=== PATIENT | male | born 1975 | race Caucasian/White ===

== ENCOUNTER 2023-07-04 17:17 | Emergency (ER) | payer BC ==
[2023-07-04 17:33] VITALS: O2SAT 99
--- NOTE | 2023-07-04 17:40 | ED Physician Documentation ---
PD HPI LOWER EXT INJURY - Stated complaint Stated Complaint: RT KNEE PX - Chief complaint Chief Complaint: Ext Problem - History obtained from History obtained from: Patient - Additional information Additional information: Patient is a 47-year-old male with no significant prior medical history presenting for evaluation of right knee pain. Patient works at the [employer] and reports slipping on some grease this morning around 1030 or 11. He felt his knee twist but was able to catch himself from falling. No head injury. He states since that time he has been limping a little bit on his right leg. He did take some ibuprofen which has helped. He denies any significant pain with range of motion but reports that sometimes when he is walking or takes a step up stairs he notices a sharp pain. Review of Systems Musculoskeletal: reports: Joint pain Neurologic: denies: Head injury PD PAST MEDICAL HISTORY - Past Medical History Past Medical History: No - Past Surgical History Past Surgical History: Yes Ortho: Shoulder arthroplasty - Present Medications Home Medications: Ambulatory Orders Medication Instructions Recorded Confirmed No Known Home Medications 07/04/23 07/04/23 - Allergies Allergies/Adverse Reactions: Allergies Allergy/AdvReac Type Severity Reaction Status Date / Time No Known Drug Allergies Allergy Verified 07/04/23 17:25 - Social History Does the pt smoke?: No Smoking Status: Never smoker PD ED PE NORMAL - General General: Alert and oriented X 3, No acute distress, Well developed/nourished - HEENT HEENT: Atraumatic - Neck Neck: Supple, no meningeal sign - Cardiac Cardiac: Strong equal pulses - Respiratory Respiratory: No respiratory distress - Extremities Extremities: No deformity, No tenderness to palpate, Normal ROM s pain, Other (Reports sharp pain at times to the superior lateral aspect of the right knee, no swelling or deformity) - Neuro Neuro: Alert and oriented X 3, No motor deficit, No sensory deficit, Normal speech Results - Vitals Vitals: Vital Signs - 24 hr 07/04/23 07/04/23 17:23 18:00 Temperature 36.8 C Heart Rate 64 61 Respiratory 18 16 Rate Blood Pressure 136/85 H 121/80 O2 Saturation 99 99 PD Medical Decision Making - ED course Complexity details: reviewed results, d/w patient ED course: Patient with right knee pain after slip and twist at work this morning. No head injury. No visible deformity. He is ambulatory. No significant pain on range of motion but does report a specific spot that at times causes a sharp pain. X- ray was obtained which I reviewed I see no fracture or dislocation. Pt reports no significant pain with ambulation and does not want crutches or immobilizer. Will continue with rita wrap which he has been using today. Understands plan for continued supportive care as well as need for follow up if symptoms are not improving. Departure - Departure Disposition: 01 Home, Self Care Clinical Impression: Right knee injury Condition: Stable Instructions: ED Knee Pain [facility] Comments: Your x-ray does not show a fracture or dislocation. However there are other structures in the knee joint that do not show up on x-ray such as ligaments and the meniscus. I would recommend continue with anti-inflammatory such as ibuprofen or acetaminophen, ice, rest. You can walk on the leg as long as it is not hurting you very much. If your symptoms are not getting better then I would recommend close follow-up as you may need further testing such as an MRI. Return to the emergency department if you have any new or worsening symptoms or any other concerns. Forms: PCP List, Activity restrictions Discharge Date/Time: 07/04/23 18:00
[2023-07-04 18:08] VITALS: BP 121/80
--- NOTE | 2023-07-04 18:09 | XRAY Report ---
PROCEDURE: Knee 3 View RT INDICATIONS: pain TECHNIQUE: 3 views of the knee(s) were acquired. COMPARISON: None. FINDINGS: Bones: No fractures or dislocations. No suspicious bony lesions. Degenerative changes are seen, inc luding osteophyte along the superior aspect of the patella on the lateral view. Soft tissues: No knee joint effusion. No suspicious soft tissue calcifications or masses. IMPRESSION: No acute bony abnormality. If it would be helpful for clinical management decision making, please consider a dedicated, schedule d knee MRI for further evaluation (assuming that there is no contraindication). Reviewed by: Kevyn Segundo MD on 07/04/2023 5:07 PM [facility] Approved by: Kevyn Segundo MD on 07/04/2023 5:07 PM [facility] Station ID: [id number]
== END 2023-07-04 18:00 | disposition home or self-care (01) ==
LOC: ED 17:17
DX: S89.91XA Unspecified injury of right lower leg, initial encounter (principal); X50.1XXA Overexertion from prolonged static or awkward postures, initial encounter; Y99.0 Civilian activity done for income or pay
CPT/HCPCS: 99283